=== PATIENT | female | born 1985 | race Caucasian/White ===

== ENCOUNTER 2021-02-18 07:32 | Emergency (ER) | payer MEDICAID ==
[~2021-02-18] VITALS: Ht 165.1 cm; Wt 56.8 kg
[2021-02-18 07:33] VITALS: BP 155/103
== END 2021-02-18 08:36 | disposition home or self-care (01) ==
LOC: ER 07:32 → EDBD 07:32 → ER 08:36
DX: L21.9 Seborrheic dermatitis, unspecified (principal); Z88.0 Allergy status to penicillin; Z91.040 Latex allergy status
CPT/HCPCS: 99281

== ENCOUNTER 2021-03-19 15:06 | Emergency (ER) | payer MEDICAID ==
[~2021-03-19] VITALS: Ht 167.6 cm; Wt 54.5 kg
[2021-03-19 15:10] VITALS: BP 141/92
== END 2021-03-19 17:04 | disposition left against medical advice (07) ==
LOC: ER 15:07
DX: Z00.00 Encounter for general adult medical examination without abnormal findings (principal); Z53.21 Procedure and treatment not carried out due to patient leaving prior to being seen by health care provider

== ENCOUNTER 2021-03-30 22:25 | Emergency (ER) | payer MEDICAID ==
[~2021-03-30] VITALS: Ht 170.2 cm; Wt 120.0 kg
[~2021-03-30 22:25] MED LIST: CLIN150C8 PO
[2021-03-30 22:39] VITALS: BP 157/88
[2021-03-30] MEDS ORDERED: LIDOcaine 1% W/epiNEPHrine 1:200,000 10ml vial IJ ONE (23:50)
[2021-03-30] MEDS ORDERED: TETanus/Pertussis (Acell)/Diphther VAC/PF (Tdap-Adult) 0.5ml syringe IMVAC ONE (23:50)
== END 2021-03-31 02:16 | disposition home or self-care (01) ==
LOC: ER 22:26
DX: S51.811A Laceration without foreign body of right forearm, initial encounter (principal); Z88.0 Allergy status to penicillin; Z20.3 Contact with and (suspected) exposure to rabies; Z91.040 Latex allergy status; X58.XXXA Exposure to other specified factors, initial encounter; Y93.89 Activity, other specified; Y92.89 Other specified places as the place of occurrence of the external cause; Y99.8 Other external cause status
CPT/HCPCS: 12001; 90471; 90715; 99283

== ENCOUNTER 2021-06-11 01:26 | Emergency (ER) | payer MEDICAID ==
[~2021-06-11] VITALS: Ht 165.1 cm; Wt 54.5 kg
[2021-06-11 01:50] VITALS: BP 146/103
[2021-06-11] MEDS ORDERED: DOXY100C43 PO (02:37)
== END 2021-06-11 02:48 | disposition home or self-care (01) ==
LOC: ER 01:27
DX: L03.221 Cellulitis of neck (principal); F17.200 Nicotine dependence, unspecified, uncomplicated; Z88.0 Allergy status to penicillin; Z91.040 Latex allergy status; Z79.2 Long term (current) use of antibiotics
CPT/HCPCS: 99283

== ENCOUNTER 2023-10-05 03:31 | Emergency (ER) | payer MEDICAID ==
[~2023-10-05] VITALS: Ht 170.2 cm; Wt 60.0 kg
[~2023-10-05 03:31] MED LIST changes: +CLIN-214 PO; -CLIN150C8 PO
[2023-10-05 03:35] VITALS: BP 125/84; PULSE 95; RESP 18; TEMP 97.8; O2SAT 100
== END 2023-10-05 06:54 | disposition left against medical advice (07) ==
LOC: ER 03:33
DX: R05.9 Cough, unspecified (principal); R09.81 Nasal congestion; Z53.21 Procedure and treatment not carried out due to patient leaving prior to being seen by health care provider
CPT/HCPCS: 99281

== ENCOUNTER 2024-06-21 19:26 | Emergency (ER) | payer MEDICAID ==
[~2024-06-21] VITALS: Ht 170.2 cm; Wt 57.0 kg
[2024-06-21 19:29] VITALS: BP 124/85; PULSE 92; RESP 16; TEMP 98; O2SAT 98
== END 2024-06-21 21:29 | disposition left against medical advice (07) ==
LOC: EEVIPCON 19:26 → ER 19:26
DX: S02.85XA Fracture of orbit, unspecified, initial encounter for closed fracture (principal); Z88.0 Allergy status to penicillin; Z91.040 Latex allergy status; Z79.2 Long term (current) use of antibiotics; Y08.89XA Assault by other specified means, initial encounter; Y93.89 Activity, other specified; Y92.89 Other specified places as the place of occurrence of the external cause; Y99.8 Other external cause status
CPT/HCPCS: 70486; 99284